=== PATIENT | male | born 1965 | race Caucasian/White ===

== ENCOUNTER 2020-07-22 23:10 | Observation (INO) | payer BC, SELFPAY ==
[2020-07-22 23:20] VITALS: BP 157/79; PULSE 96; RESP 18; TEMP 36.9; O2SAT 99; BMI 30.4
--- NOTE | 2020-07-22 23:33 | XR_ITS ---
PROCEDURE: XR CHEST 2V CLINICAL HISTORY: swollen extremity COMPARISON: No exams were available for comparison FINDINGS: The cardiomediastinal silhouette and pulmonary vascularity are within normal limits. The lungs are clear without infiltrates, suspicious nodules, or pleural effusions. Degenerative changes in the thoracic spine IMPRESSION: No acute findings. Dictated by: Peter Arana MD 07/23/2020 05:03 Peter Arana MD in [place] 07/23/2020 05:03
--- NOTE | 2020-07-22 23:46 | ECG_ITS ---
APPROVED REPORT Exam: Resting ECG HR:80 bpm ECG Measurements Heart Rate 80 AXES ND 158 P 61 QRSd 94 QRS 62 QT 368 T 50 QTc 424 Conclusion Normal sinus rhythm Normal ECG Electronically signed by : Omer Resendiz, 07/23/2020 19:48:13
[2020-07-22 23:52] LABS: Basophils % 0.5 % (0.1-2.0); Eosinophils # 0.1 K/mm3 (0.0-0.4); Eosinophils % 1.5 % (0.1-12.0); Hematocrit 44.1 % (42.0-52.0); Hemoglobin 14.6 g/dL (14.1-18.0); Lymphocytes # 1.3 K/mm3 (0.7-4.5); Lymphocytes % 21.8 % (10-50); Mean Corpuscular Hemoglobin 33.6 pg (27.0-31.2); Mean Corpuscular Volume 101.6 fl (80-94); Mean Platelet Volume 7.9 fl (7.4-10.4); Monocytes # 0.4 K/mm3 (0.1-1.0); Monocytes % 7.2 % (1.7-9.3); Neutrophils # 4.2 K/mm3 (1.8-7.8); Neutrophils % 69.1 % (37.0-80.0); Platelet Count 97 K/mm3 (142-424); Red Blood Count 4.34 M/mm3 (4.60-6.20); Red Cell Distribution Width 13.7 % (11.5-17.5); White Blood Count 6.1 K/mm3 (4.8-10.8)
[2020-07-22 23:58] LABS: Alanine Aminotransferase 22 U/L (12-78); Albumin Level 4.3 g/dl (3.5-5.0); Albumin/Globulin Ratio 1.5 (1.1-1.8); Alkaline Phosphatase 107 U/L (38-126); Anion Gap 13.2 mEq/L (5-15); Aspartate Amino Transferase 37 U/L (17-59); Bilirubin,Total 0.4 mg/dl (0.2-1.3); Blood Urea Nitrogen 36 mg/dl (9-20); Calcium 9.3 mg/dl (8.4-10.2); Carbon Dioxide 27 mmol/L (22.0-30.0); Chloride 104 mmol/L (98-107); Creatinine Clearance Estimated 75 mL/min (50-200); Estimated Glomerular Filt Rate 42 ml/min (>60); GFR (African American) 51 ML/MIN (>60); Globulin 2.9 g/dL (1.3-3.2); Glucose 118 mg/dl (74-100); Potassium 4.2 mmoL/L (3.5-5.1); Sodium 140 mmol/L (136-145); Total Protein,Serum 7.2 g/dl (6.3-8.2)
[2020-07-23] VITALS (10 sets, daily range): BP systolic 124–153; BP diastolic 72–96; PULSE 66–80; RESP 12–16; TEMP 36.4–36.8; O2SAT 97–98; BMI 31.5
[2020-07-23 00:15] LABS: Troponin I < 0.01 ng/ml (0.00-0.034)
[2020-07-23 00:17] LABS: Erythrocyte Sedimentation Rate 16 mm/hr (0-20)
--- NOTE | 2020-07-23 00:21 | CT_ITS ---
PROCEDURE: CT ANGIO CHEST CLINCIAL INDICATION: swollen leg Recent air travel, swollen leg, long car travel COMPARISON: No exams were available for comparison TECHNIQUE: IV Contrast: 70ML Isovue 370 Axial images obtained with sagittal and coronal reformats. All CT scans at the facility use one or more dose reduction, viz: automated exposure control, ma/kV adjustment per patient size (including targeted exams where dose is matched to indication, i.e. head), or iterative reconstruction technique. FINDINGS: HEART AND MEDIASTINAL STRUCTURES: There are pulmonary emboli within the segmental branch of the left lower lobe. There is also a small thin stringy type filling defect in the descending branch of the right pulmonary artery consistent with a small embolus. No mediastinal or hilar mass or adenopathy. No evidence of right heart strain. LUNGS AND PLEURAL SPACES: Unremarkable. BONY STRUCTURES: Mild degenerative changes thoracic spine UPPER ABDOMEN: Multiple hypodensities of the liver which are nonspecific. The largest is in the right hepatic lobe at 17 mm measuring near water density consistent with hepatic cysts ADDITIONAL FINDINGS: No other significant abnormalities. IMPRESSION: Bilateral pulmonary emboli. No evidence of right heart strain Dictated by: Peter Arana MD 07/23/2020 05:55 Peter Arana MD in [place] 07/23/2020 05:55
--- NOTE | 2020-07-23 00:27 | HMH.EDLOEX ---
ED Disposition Clinical Impression: Renal insufficiency, Thrombocytopenia Pulmonary emboli Qualifiers: Pulmonary embolism type: unspecified Chronicity: acute Acute cor pulmonale presence: without acute cor pulmonale Qualified Code(s): I26.99 - Other pulmonary embolism without acute cor pulmonale DVT (deep venous thrombosis) Qualifiers: DVT location: lower extremity Affected thrombotic vein of extremity: unspecified vein of extremity Chronicity: acute Laterality: right Qualified Code(s): I82.401 - Acute embolism and thrombosis of unspecified deep veins of right lower extremity Disposition: Admitted as Observation Condition on Discharge: Good Referrals: PCP,No [Primary Care Provider] - - Critical Care Critical Care Time: No Attestation: On 07/22/20, the high probability of a clinically significant, sudden or life threatening deterioration of the following system(s) required my full and direct attention, intervention and personal management. The time I documented below is in addition to time spent performing reported procedures but includes the following listed in this critical care notation. Medical Decision Making - Medical Records Medical records reviewed: Yes: I reviewed the patient's medical records. - [place] Inquiry Pt receiving controlled substance: No Vital Signs: 07/22/20 23:20 Temperature 98.4 F Temperature Source Oral Pulse Rate [Left] 96 H Respiratory Rate 18 Blood Pressure [Right Arm] 157/79 H Blood Pressure Mean [Right Arm] 105 Blood Pressure Source [Right Arm] Automatic Cuff Blood Pressure Position [Right Arm] Sitting 02 Sat by Pulse Oximetry 99 - Lab Data Lab results reviewed: Yes: I reviewed the patient's lab results. Lab Results 07/22/20 23:42: WBC 6.1, RBC 4.34 L, Hgb 14.6, Hct 44.1, MCV 101.6 H, MCH 33.6 H, MCHC 33.0, RDW 13.7, Plt Count 97 L, MPV 7.9, Neut % (Auto) 69.1, Lymph % (Auto) 21.8, [place] % (Auto) 7.2, Eos % (Auto) 1.5, Baso % (Auto) 0.5, Neut # (Auto) 4.2, Lymph # (Auto) 1.3, [place] # (Auto) 0.4, Eos # (Auto) 0.1, Baso # (Auto) 0.0, ESR 16 07/22/20 23:42: Sodium 140, Potassium 4.2, Chloride 104, Carbon Dioxide 27, Anion Gap 13.2, BUN 36 H, Creatinine 1.70 H, Estimated Creat Clear 75, Estimated GFR 42 L, Est GFR ( Amer) 51 L, Glucose 118 H, Calcium 9.3, Total Bilirubin 0.4, AST 37, ALT 22, Alkaline Phosphatase 107, Troponin I < 0.01, C-Reactive Protein 14.0 H, Total Protein 7.2, Albumin 4.3, Globulin 2.9, Albumin/Globulin Ratio 1.5 Result diagrams: 07/22/20 23:42 07/22/20 23:42 Orders (Tests/Meds): ED MEDICATIONS Generic Name Dose Route Start Last Admin Trade Name Freq PRN Reason Stop Dose Admin Sodium Chloride 1,000 mls @ 999 mls/hr 07/23/20 00:30 07/23/20 00:19 Sod Chlor 0.9% 1000ml Bag IV 07/23/20 01:30 999 mls/hr .Q1H1M LADI Administration Discontinued Medications Generic Name Dose Route Start Last Admin Trade Name Freq PRN Reason Stop Dose Admin Iopamidol 70 ml 07/23/20 01:25 07/23/20 01:26 Iopamidol-370 (76%);100ml Bottle IV 07/23/20 01:26 70 ml ONCE ONE Administration Sodium Chloride 40 ml 07/23/20 01:25 07/23/20 01:26 0.9 % Sodium Chloride 50 Ml Vial IV 07/23/20 01:26 40 ml ONCE ONE Administration Sodium Chloride 10 ml 07/23/20 01:25 07/23/20 01:26 Sodium Chloride 0.9% 10ml Syr (Rad Only) IV 07/23/20 01:26 10 ml ONCE ONE Administration ORDERS Category Date Time Status CT Chest w/PE protocol [CT angio chest] Stat Cat Scan 07/23/20 00:21 Taken XR chest 2V Stat Exams 07/22/20 23:33 Taken Covid-19 IgG/IgM ([facility]) Stat Lab 07/23/20 01:16 Received D-Dimer Stat Lab 07/23/20 00:28 Received Troponin I Q3H Lab 07/23/20 02:45 Ordered Troponin I Q3H Lab 07/23/20 05:45 Ordered - Radiology Data #1 Image(s): Chest Image Reviewed: Yes I reviewed the patient's radiology image Preliminary Findings: Abnormal (nonspecific ) - CT Data CT Scan: Chest Time Received: 01:[address] Reviewed: Yes
--- NOTE | 2020-07-23 00:35 | PC.NURSE ---
patient cr and bun elevated; chooses to override and have the ct with ivp contrast. андрей notified
--- NOTE | 2020-07-23 01:25 | PC.NURSE ---
paged pharmacy, marley returned call for drip rate and bolus
[2020-07-23 02:05] LABS: INR 0.96 (0.9-1.1); Prothrombin Time 10.7 seconds (9.4-11.8)
[2020-07-23 02:10] LABS: Coronavirus 19 IgG Antibody Negative (Negative); Coronavirus 19 IgM Antibody Negative (Negative)
--- NOTE | 2020-07-23 02:36 | PC.NURSE ---
report called to Elayne LEOS
--- NOTE | 2020-07-23 02:45 | PC.NURSE ---
patient up to floor via wheelchair.
--- NOTE | 2020-07-23 07:03 | HMH.HP ---
*Admission Date: 07/23/20 *Chief complaint: Right leg swelling *History of present illness: 54-year-old male with no significant medical history presented to the emergency department with progressive right leg swelling over the preceding 48 hours. Patient is a recently flown from [place] to [place] and has been touring parts of [place] in search of property for an anticipated move to the area. 48 hours prior to his presentation he noticed onset of a crampy sensation around the ankle with slight swelling. By Wednesday evening (July 22) patient's swelling had progressed significantly to include the thigh along with a burning sensation in the leg. He estimates his right leg was twice the size of his left leg. He was encouraged to seek treatment at the hospital. Patient presented for evaluation and his history was concerning for a DVT. As he presented in the middle of the night no Doppler was able to be performed but a CT scan of his chest was performed. Patient denies any shortness of breath but CT scan did reveal bilateral pulmonary emboli. Patient was started on Lovenox and given a dose of Eliquis. This morning he continues to denies shortness of breath. Family history is significant for a father who has had multiple blood clots and the patient believes his brother has had at least 1 blood clot. Protein C&S as well as factor V Leiden gene mutation were ordered through the ER [facility] History I have reviewed the patient's past medical history: Yes Medical History: Denies:: Diabetes Mellitus Type 1, Diabetes Mellitus Type 2 *Have you ever received a pneumonia vaccine?: No *Have you received a flu vaccine this season?: No Laterality Cases: Left: Total Hip Replacement - *Social History Smoking Status: Never smoker Alcohol Intake: never *Occupational Status:: employed Household Members: children *Travel in the last 8 weeks: Inside the [place] Family Hx:: Other (Venous thromboembolism) Review of Systems - Review of Systems Review of systems:: pertinent systems reviewed and negative unless documented below - *Neurologic Denies seizure-like activity Meds Home Medications Medication Instructions Recorded Confirmed Type No Known Home Medications 07/22/20 07/22/20 History Allergies Allergy/AdvReac Type Severity Reaction Status Date / Time No Known Allergies Allergy Verified 07/22/20 23:30 Exam Vital signs and Labs for Last 24 Hours: Temp Pulse Resp BP Pulse Ox 97.7 F 80 16 137/86 97 07/23/20 02:45 07/23/20 04:00 07/23/20 02:45 07/23/20 02:45 07/23/20 02:45 Laboratory Results - last 24 hr 07/22/20 00:00: SARS-CoV-2 IgG Ab (Rapid) Negative, SARS-CoV-2 IgM Ab (Rapid) Negative 07/22/20 23:42: WBC 6.1, RBC 4.34 L, Hgb 14.6, Hct 44.1, MCV 101.6 H, MCH 33.6 H, MCHC 33.0, RDW 13.7, Plt Count 97 L, MPV 7.9, Neut % (Auto) 69.1, Lymph % (Auto) 21.8, [place] % (Auto) 7.2, Eos % (Auto) 1.5, Baso % (Auto) 0.5, Neut # (Auto) 4.2, Lymph # (Auto) 1.3, [place] # (Auto) 0.4, Eos # (Auto) 0.1, Baso # (Auto) 0.0, ESR 16 07/22/20 23:42: Sodium 140, Potassium 4.2, Chloride 104, Carbon Dioxide 27, Anion Gap 13.2, BUN 36 H, Creatinine 1.70 H, Estimated Creat Clear 75, Estimated GFR 42 L, Est GFR ( Amer) 51 L, Glucose 118 H, Calcium 9.3, Total Bilirubin 0.4, AST 37, ALT 22, Alkaline Phosphatase 107, Troponin I < 0.01, C-Reactive Protein 14.0 H, Total Protein 7.2, Albumin 4.3, Globulin 2.9, Albumin/Globulin Ratio 1.5 07/23/20 00:28: D-Dimer 5478.37 H 07/23/20 00:28: APTT 25.0 07/23/20 00:28: PT 10.7, INR 0.96 I & O for Last 24 hours: Intake & Output 07/20/20 07/21/20 07/22/20 07/23/20 11:59 11:59 11:59 11:59 Weight 245 lb 9.6 oz - *Routine HEENT Exam Head: Present: normocephalic Eye: Present: EOMI, PERRL ENT: Present: mucous membranes moist - *Routine Neck Exam Present: supple. Absent: lymphadenopathy - *Routine Respiratory Exam Present: CTA bilaterally - *Routine Cardiovascular Exam Present
--- NOTE | 2020-07-23 08:00 | CA_ITS ---
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: CT Indications Lower Extremity Pain: Right Pulmonary Embolism leg swelling, bilateral PE Risk Factors Recent Travel Vein Imaging CFV (R): Non-Compressible SFJ (R): Non-Compressible FEM (R): Partially Compressible POP (R): Partially Compressible DFV (R): Partially Compressible PTV (R): Partially Compressible GSV (R): Partially Compressible SSV (R): Compressible GAS (R): Partially Compressible CFV (L): compressive, spontaneous, phasic, augmentation SFJ (L): compressive, spontaneous, phasic, augmentation FEM (L): compressive, spontaneous, phasic, augmentation POP (L): Partially Compressible DFV (L): compressive, spontaneous, phasic, augmentation PTV (L): Partially Compressible GSV (L): compressive, spontaneous, phasic, augmentation SSV (L): compressive, spontaneous, phasic, augmentation Peroneals (L):Not Visualized GAS (L): compressive, spontaneous, phasic, augmentation Findings RLE + DVT/SVT in Common Femoral, Femoral, Popliteal, Posterior Tibial, Great Saphenous Vein. Vessels non-compressible. LLE + DVT in Popliteal. vessles non-compressible. Conclusion RLE + DVT/SVT in Common Femoral, Femoral, Popliteal, Posterior Tibial, Great Saphenous Vein. Vessels non-compressible. LLE + DVT in Popliteal. vessles non-compressible. Electronically signed by : Peter Arana MD 07/23/2020 17:22:45
--- NOTE | 2020-07-23 08:00 | CA_ITS ---
APPROVED REPORT EXAM: Comprehensive 2D, Doppler, and color-flow Echocardiogram Ship Boss: Parisa Sanchez CRT Ht: 6 ft 2 in Wt: 237lbs BSA: 2.34 BP: 157/79 mmHg Indications: Peripheral Edema, Bilateral PE, Thrombocytopenia 2D Dimensions LVOT 2.08 cm (M/F) 1.5-2.5 M-Mode Dimensions RVDd 3.13 cm (0.9-2.6) LA Diam 3.71 cm (1.9-4.0) LVDd 5.13 cm (3.5-5.7) Ao Diam 4.20 cm (2.0-3.7) LVDs 3.45 cm (3.5-5.7) IVSd 1.39 cm (0.6-1.1) PWd 0.75 cm (0.6-1.1) EF (Teich) 60.90% FS 32.70% EDV (Teich) 125.50 mL ESV (Teich) 49.10 mL LV Diastology E Decel Time 217.00 (160-240 msec) E/A Ratio 1.17 MED E' 11.40 (< 7 cm/sec) E'/MED E' Ratio 6.62 (>14) LAT E' 12.40 (<10 cm/sec) E/LAT E' Ratio 6.09 (>14) Mitral Valve MV A Velocity 65.00 (40-130 cm/s) E/A Ratio 1.17 MV Decel. Time 217.00 (160-240 ms) Pulmonary Valve PV Peak Velocity 87.00 (50-150 cm/s) Tricuspid Valve TR P. Velocity 250.00 cm/s RAP Estimate 10.00 mmHg RVSP 35.00 mmHg Left Ventricle Left atrium is normal size, left ventricle is normal size, there is no concentric left ventricular hypertrophy, visually estimated ejection fraction 55% with no regional wall motion abnormality, diastolic parameters are within normal range. Right Ventricle Right atrium is normal size, right ventricle is qualitatively mildly enlarged with normal contractility. Aortic Valve Aortic valve is minimally thickened and fibrosed, there is no aortic stenosis or aortic insufficiency. Mitral Valve Mitral valve is grossly normal, there is mild mitral regurgitation. Tricuspid Valve Tricuspid valve is grossly normal, there is mild tricuspid regurgitation, tricuspid regurgitation jet velocity is inadequate for calculation of the right ventricular systolic pressure. Pulmonic Valve Pulmonic valve is poorly visualized. There is mild pulmonic insufficiency. Great Vessels Aortic root is normal size. Pericardium No significant pericardial effusion noted. Conclusion 1. Normal left ventricular size, preserved left ventricular systolic function, visually estimated ejection fraction 55% with no regional wall motion abnormality, diastolic parameters are within normal range. 2. Mildly enlarged right ventricle with normal contractility. 3. Mild mitral and tricuspid regurgitation. 4. No significant pericardial effusion noted. Electronically signed by : Obi Jimenez, 07/24/2020 05:16:40
--- NOTE | 2020-07-23 08:03 | HMH.PHAVTE ---
[facility] Pharm[facility] VTE Monitoring - Patient Demographics Admission date: 07/22/20 Report Date: 07/23/20 Time: 08:03 Allergies/Adverse Reactions: Patient Allergies No Known Allergies Allergy (Verified 07/22/20 23:30) Height: 1.88 m Weight: 111.402 kg Patient Problems: Current Active Problems Pulmonary emboli (Acute) DVT (deep venous thrombosis) (Acute) Renal insufficiency (Acute) Thrombocytopenia (Acute) - VTE Risk Labs: VTE Related Lab Results Hgb 14.6 g/dL (14.1-18.0) 07/22/20 23:42 Hct 44.1 % (42.0-52.0) 07/22/20 23:42 Plt Count 97 K/mm3 (142-424) L 07/22/20 23:42 PT 10.7 seconds (9.4-11.8) 07/23/20 00:28 INR 0.96 (0.9-1.1) 07/23/20 00:28 APTT 25.0 seconds (23.6-34.0) 07/23/20 00:28 BUN 36 mg/dl (9-20) H 07/22/20 23:42 Creatinine 1.70 mg/dl (0.66-1.25) H 07/22/20 23:42 Estimated Creat Clear 75 mL/min (50-200) 07/22/20 23:42 Was VTE Risk Assessment Performed: Yes VTE Score: 2 VTE Risk Level: Low Risk Clinical Trial Participant: No - Prophylaxis VTE Prophylaxis Ordered?: Yes Types of VTE Prophylaxis: TEDS Knee High, Pharmacological Pharmacologic Type: Other (ELIQUIS)
[2020-07-23 09:40] LABS: Basophils % 0.2 % (0.1-2.0); Eosinophils # 0.1 K/mm3 (0.0-0.4); Hematocrit 41.7 % (42.0-52.0); Hemoglobin 13.6 g/dL (14.1-18.0); Lymphocytes % 23.1 % (10-50); Mean Corpuscular HGB Conc 32.6 g/dL (31.8-35.4); Mean Corpuscular Hemoglobin 33.4 pg (27.0-31.2); Mean Corpuscular Volume 102.4 fl (80-94); Mean Platelet Volume 7.8 fl (7.4-10.4); Monocytes # 0.3 K/mm3 (0.1-1.0); Monocytes % 6.1 % (1.7-9.3); Neutrophils # 2.8 K/mm3 (1.8-7.8); Neutrophils % 68.6 % (37.0-80.0); Platelet Count 95 K/mm3 (142-424); Red Blood Count 4.07 M/mm3 (4.60-6.20); Red Cell Distribution Width 13.7 % (11.5-17.5); White Blood Count 4.1 K/mm3 (4.8-10.8)
[2020-07-23 09:52] LABS: Chloride 108 mmol/L (98-107); Sodium 140 mmol/L (136-145)
[2020-07-23 09:55] LABS: Blood Urea Nitrogen 28 mg/dl (9-20); Calcium 8.7 mg/dl (8.4-10.2); Carbon Dioxide 26 mmol/L (22.0-30.0); Creatinine Clearance Estimated 94 mL/min (50-200); Estimated Glomerular Filt Rate 53 ml/min (>60); GFR (African American) 64 ML/MIN (>60); Glucose 112 mg/dl (74-100)
--- NOTE | 2020-07-23 16:53 | PC.NURSE ---
Pt is alert and oriented and able to make needs known. CB in reach. Pharm vte. Lungs cta. S1,S2 noted. NSR on tele. VSS. Awaiting results of echo and doppler to be uploaded. Will cont to mx.
[2020-07-24] VITALS: BP 124/74; PULSE 78; PULSE 90; RESP 16; TEMP 36.8; O2SAT 97
--- NOTE | 2020-07-24 03:48 | PC.NURSE ---
Pt is A&Ox4 and has ambulated in room and in hallway and tolerated well independently. Pt has c/o pain to R inner thigh and R calf, medicated per MAR with Tylenol and is well controlled. Pt has denied any SOA, dyspnea, or chest pain. Lungs CTA and SaO2 97% on room air. Pt denies any N/V/D. ABD is soft, non-tender with active BS noted. Pt reports BM during previous shift. +2 pitting edema to RLE. Some red, non-raised areas noted to right calf. Peripheral pulse to RLE is palpable but faint. LLE is +1 non-pitting and pulses WNL. Bilat extremities [employer]IE CR[employer]IC are WNL. Pt encouraged to keep BLE elevated when in bed and chair, pt stated his understanding. NSR on telemetry. VSS, call light within reach, will continue to monitor.
[2020-07-24 04:00] VITALS: BP 131/75; PULSE 60; PULSE 67; RESP 16; TEMP 36.6; O2SAT 98
[2020-07-24 05:42] VITALS: BMI 31.3
--- NOTE | 2020-07-24 07:11 | HMH.ACPN2 ---
Internal Medicine - PN: Subj *Date: 07/24/20 *Time: 07:33 Interval history: Patient has no complaints this morning. He reports improvement in pain as well as edema in the right thigh and right lower extremity. Venous Doppler results are below: RLE + DVT/SVT in Common Femoral, Femoral, Popliteal, Posterior Tibial, Great Saphenous Vein. Vessels non-compressible. LLE + DVT in Popliteal. vessles non-compressible. Exam Vital signs and Labs for Last 24 Hours: Temp Pulse Resp BP Pulse Ox 97.9 F 67 16 131/75 98 07/24/20 04:00 07/24/20 04:00 07/24/20 04:00 07/24/20 04:00 07/24/20 04:00 Laboratory Results - last 24 hr 07/23/20 09:05: WBC 4.1 L D, RBC 4.07 L, Hgb 13.6 L, Hct 41.7 L, MCV 102.4 H, MCH 33.4 H, MCHC 32.6, RDW 13.7, Plt Count 95 L, MPV 7.8, Neut % (Auto) 68.6, Lymph % (Auto) 23.1, [place] % (Auto) 6.1, Eos % (Auto) 2.0, Baso % (Auto) 0.2, Neut # (Auto) 2.8, Lymph # (Auto) 1.0, [place] # (Auto) 0.3, Eos # (Auto) 0.1, Baso # (Auto) 0.0 07/23/20 09:05: Sodium 140, Potassium 4.0, Chloride 108 H, Carbon Dioxide 26, Anion Gap 10.0, BUN 28 H, Creatinine 1.40 H, Estimated Creat Clear 94, Estimated GFR 53 L, Est GFR ( Amer) 64 D, Glucose 112 H, Calcium 8.7 I & O for Last 24 hours: Intake & Output 07/21/20 07/22/20 07/23/20 07/24/20 11:59 11:59 11:59 11:59 Intake Total 480 / 480 1210 / 1210 Balance 480 / 480 1210 / 1210 Weight 245 lb 9.6 oz 244 lb 4 oz Narrative: Patient is ambulating in the room without difficulty. Even with his sweatpants on the right thigh is noted to be larger than left. Patient has no palpable tenderness along the thigh extending down into the calf. He has full range of motion in the right hip, knee, ankle. There is no discoloration of the skin. Skin is warm to touch. Patient has palpable dorsalis pedis, posterior tibialis, popliteal pulses Assessment and Plan (1) Deep vein thrombosis (DVT) of femoral vein of right lower extremity Status: Acute Category: Medical Code(s): I82.411 - Acute embolism and thrombosis of right femoral vein (2) Deep vein thrombosis (DVT) of popliteal vein of both lower extremities Status: Acute Category: Medical Code(s): I82.433 - Acute embolism and thrombosis of popliteal vein, bilateral (3) Pulmonary emboli Status: Acute Qualifiers: Pulmonary embolism type: unspecified Chronicity: acute Acute cor pulmonale presence: without acute cor pulmonale Qualified Code(s): I26.99 - Other pulmonary embolism without acute cor pulmonale Category: Medical Code(s): I26.99 - Other pulmonary embolism without acute cor pulmonale (4) Thrombocytopenia Status: Acute Category: Medical Code(s): D69.6 - Thrombocytopenia, unspecified (5) Deep vein thrombosis (DVT) of calf muscle vein of both lower extremities Status: Acute Category: Medical Code(s): I82.463 - Acute embolism and thrombosis of calf muscular vein, bilateral - Assessment and plan all Dx Assessment and Plan for all problems:: Patient is hemodynamically stable. There is no evidence of arterial compromise of the right lower extremity. Left lower extremity is asymptomatic. Patient is asymptomatic from pulmonary embolism. Patient is being anticoagulated. He will be discharged home on Eliquis. He has been advised to delay his travel plans by 1 week. Patient will be given a follow-up phone call from the office. Patient will return to the [place] area in approximately 1 week and he plans on following up with his 's primary care physician there
--- NOTE | 2020-07-24 07:34 | HMH.DCSUM ---
General - General Admission date:: 07/23/20 Discharge date: 07/24/20 HPI HPI: 54-year-old male with no significant medical history presented to the emergency department with progressive right leg swelling over the preceding 48 hours. Patient is a recently flown from [place] to [place] and has been touring parts of [place] in search of property for an anticipated move to the area. 48 hours prior to his presentation he noticed onset of a crampy sensation around the ankle with slight swelling. By Wednesday evening (July 22) patient's swelling had progressed significantly to include the thigh along with a burning sensation in the leg. He estimates his right leg was twice the size of his left leg. He was encouraged to seek treatment at the hospital. Patient presented for evaluation and his history was concerning for a DVT. As he presented in the middle of the night no Doppler was able to be performed but a CT scan of his chest was performed. Patient denies any shortness of breath but CT scan did reveal bilateral pulmonary emboli. Patient was started on Lovenox and given a dose of Eliquis. This morning he continues to denies shortness of breath. Family history is significant for a father who has had multiple blood clots and the patient believes his brother has had at least 1 blood clot. Protein C&S as well as factor V Leiden gene mutation were ordered through the ER Hospital Course Hospital Course: Patient was admitted and initially given Lovenox injection at a dose of 1.5 mg/kg subcu while also being simultaneously loaded with Eliquis 10 mg. Venous Doppler and echocardiogram performed the morning of July 23 confirmed the presence of extensive clot in the right leg from the femoral and common femoral vein down to the popliteal and peroneal veins on the right. Patient also had DVT on the left. CT angiogram had confirmed the presence of small pulmonary embolism of which the patient was asymptomatic. Echocardiogram showed normal left ventricular function and no sign of right heart strain. On patient's physical exam there were no signs of arterial insufficiency. He had palpable distal pulses in both extremities. The right thigh and lower leg were significantly larger in size than the left secondary to the swelling. Lungs remain clear. Heart had a regular rate and rhythm. On the afternoon of the patient began ambulating. By the the swelling in the right lower extremity and right thigh had begun to show signs of improvement. There were no signs of phlegmasia cerulea dolens or phlegmasia alba dolens. Patient was discharged home. He will continue loading with Eliquis. Patient had initial plans to return to [facility] starting Wednesday but I have recommended he delay his travel plans by 1 week to allow for further improvement in swelling. Objective Vital signs: Temp Pulse Resp BP Pulse Ox 97.9 F 67 16 131/75 98 07/24/20 04:00 07/24/20 04:00 07/24/20 04:00 07/24/20 04:00 07/24/20 04:00 Results Labs on day of discharge: Labs from last 24 hours 07/23/20 07/23/20 09:05 09:05 WBC 4.1 L D RBC 4.07 L Hgb 13.6 L Hct 41.7 L MCV 102.4 H MCH 33.4 H MCHC 32.6 RDW 13.7 Plt Count 95 L MPV 7.8 Neut % (Auto) 68.6 Lymph % (Auto) 23.1 [place] % (Auto) 6.1 Eos % (Auto) 2.0 Baso % (Auto) 0.2 Neut # (Auto) 2.8 Lymph # (Auto) 1.0 [place] # (Auto) 0.3 Eos # (Auto) 0.1 Baso # (Auto) 0.0 Sodium 140 Potassium 4.0 Chloride 108 H Carbon Dioxide 26 Anion Gap 10.0 BUN 28 H Creatinine 1.40 H Estimated Creat Clear 94 Estimated GFR 53 L Est GFR ( Amer) 64 D Glucose 112 H Calcium 8.7 DS: Diagnosis - Discharge Diagnosis (1) Deep vein thrombosis (DVT) of femoral vein of right lower extremity Status: Acute (2) Deep vein thrombosis (DVT) of popliteal vein of both lower extremities Status: Acute (3) Pulmonary emboli
[2020-07-24 08:00] VITALS: BP 147/79; PULSE 109; PULSE 70; RESP 18; TEMP 36.9; O2SAT 96
--- NOTE | 2020-07-24 09:31 | PC.NURSE ---
Spoke with Dr. Coppola and he stated pt needs to [place] flight x 1 week and not return to work until cleared by pcp in [place] - which he plans to see his wifes pcp for establishment of care while there.
[2020-07-25 02:54] LABS: Factor VIII Activity 90 % (56-140)
[2020-07-25 09:07] LABS: Factor V Activity 89 % (70-150); Protein C Functional 97 % (73-180); Protein S, Free 73 % (57-157); Protein S, Total 103 % (60-150); Protein S-Functional 95 % (63-140)
[2020-07-26 10:35] LABS: Protein C Antigen 77 % (60-150)
== END 2020-07-24 09:50 | disposition home or self-care (01) ==
LOC: ER 07-23 01:45 → 2ND 07-23 02:02
PROVIDERS: Admitting Provider Family Medicine; Emergency Provider Emergency Medicine; Visit Provider Family Medicine
DX: I26.99 Other pulmonary embolism without acute cor pulmonale (principal); I82.463 Acute embolism and thrombosis of calf muscular vein, bilateral; I82.411 Acute embolism and thrombosis of right femoral vein; I82.433 Acute embolism and thrombosis of popliteal vein, bilateral; D69.6 Thrombocytopenia, unspecified; Z23 Encounter for immunization; D68.51 Activated protein C resistance
CPT/HCPCS: G0008; 71046; 71275; 80048; 80053; 81241; 84484; 85025; 85220; 85240; 85302; 85305; 85306; 85378; 85610; 85651; 85730; 86140; 86328; 90686; 93005; 93041; 93306; 93970; 96365; 96372; 99284; G0378; Q9967